=== PATIENT | male | born 1985 | race African-American/Black ===

== ENCOUNTER 2025-02-28 12:15 | Emergency (ER) | payer SELFPAY ==
[2025-02-28] MEDS: Ketorolac 60 MG/2 ML SDV IM ONE (14:30)
[2025-02-28 16:19] LABS: APPEARANCE,URINE CLEAR (Clear); GLUCOSE,URINE NEGATIVE (Negative); OCCULT BLOOD,URINE NEGATIVE (Negative)
[2025-02-28 16:23] LABS: BUPRENORPHINE SCREEN,URINE NEGATIVE (CUTOFF=10); METHADONE SCREEN, URINE NEGATIVE (CUT0FF=200); METHAMPHETAMINES SCREEN, URINE NEGATIVE (CUTOFF=500); OXYCODONE SCREEN,URINE NEGATIVE (CUT0FF=100); THC SCREEN,URINE 20 NG/ML NEGATIVE (CUTOFF=50)
[2025-02-28 16:27] LABS: AMPHETAMINES SCREEN, URINE NEGATIVE (CUTOFF=500)
== END 2025-02-28 18:00 | disposition home or self-care (01) ==
LOC: JD.ED 12:15
DX: M48.061 Spinal stenosis, lumbar region without neurogenic claudication (principal); M47.816 Spondylosis without myelopathy or radiculopathy, lumbar region; M51.27 Other intervertebral disc displacement, lumbosacral region; Z79.899 Other long term (current) drug therapy
CPT/HCPCS: 72131; 72131-26; 72192; 72192-26; 80306; 81003; 96372; 99284; A9270-GY; J1885